=== PATIENT | male | born 1950 | race Caucasian/White ===

== ENCOUNTER 2020-06-21 22:13 | Inpatient (IN) ==
[2020-06-21] MEDS ORDERED: Ondansetron 4 MG/2 ML VIAL IVP ONE (22:21)
[2020-06-21] MEDS ORDERED: *HR* FentaNYL (PF) 100 MCG/2 ML VIAL IVP ONE (22:21)
[2020-06-21 22:41] LABS: Basophils # 0.1 K/mcL (0.0-0.2); Basophils % 0.6 %; Eosinophils # 0.3 K/mcL (0.0-0.6); Eosinophils % 2.2 %; Hematocrit 44.2 % (37.5-50.1); Hemoglobin 14.4 g/dL (12.9-16.9); Immature Granulocytes % 0.5 % (0-4); Lymphocytes # 2.8 K/mcL (0.6-4.6); Lymphocytes % 21.9 %; Mean Corpuscular HGB Conc 32.6 g/dL (31.6-35.5); Mean Corpuscular Hemoglobin 30.1 pg (28.0-33.3); Mean Corpuscular Volume 92.3 fL (83.0-100.0); Mean Platelet Volume 10.2 fL (9.4-12.4); Monocytes # 0.8 K/mcL (0.0-1.3); Monocytes % 6.2 %; Neutrophils # 8.7 K/mcL (1.6-8.9); Platelet Count 314 K/mcL (140-400); Red Blood Count 4.79 M/mcL (4.19-5.50); Red Cell Distribution Width 15.4 % (11.5-14.5); Segmented Neutrophils % 68.6 %; White Blood Count 12.7 K/mcL (4.3-11.1)
[2020-06-21 23:08] LABS: Alanine Aminotransferase 22 Units/L (7-52); Albumin 3.7 g/dL (3.5-5.7); Albumin/Globulin Ratio 1.2 (1.1-2.2); Alkaline Phosphatase 138 Units/L (34-104); Aspartate Amino Transferase 22 Units/L (13-39); BUN/Creatinine Ratio 11 (6-26); Bilirubin,Direct 0.2 mg/dL (0.0-0.2); Bilirubin,Indirect 0.7 mg/dL (0.0-1.0); Bilirubin,Total 0.9 mg/dL (0.3-1.0); Blood Urea Nitrogen 11 mg/dL (8-23); Calcium 9.4 mg/dL (8.6-10.3); Carbon Dioxide 24 mEq/L (23-29); Chloride 99 mEq/L (98-107); Globulin 3.2 g/dL (2.4-3.5); Glucose 105 mg/dL (70-105); Osmolality,Calculated 280 (280-300); Potassium 3.9 mEq/L (3.5-5.1); Sodium 135 mEq/L (136-145); Total Protein 6.9 g/dL (6.4-8.9); Troponin I < 0.03 ng/mL (< 0.04); eGFR For African Americans > 60 (> 60); eGFR For Non-African Americans > 60 (> 60)
[2020-06-21] MEDS ORDERED: Morphine Sulfate 2 MG/ML SYRINGE IVP ONE (23:45)
[2020-06-22] MEDS: 0.9 % Sodium Chloride 1,000 ML IVC SCH ×3 (01:16→21:54)
[2020-06-22] MEDS: cefOXitin 2,000 MG in 0.9 % Sodium Chloride Mini Bag 100 ML IVPB SCH ×4 (01:17→23:19)
[2020-06-22] MEDS: *HR* OxyCODONE/APAP 10/325 TABLET PO PRN ×3 (01:38→11:38)
[2020-06-22 02:01] LABS: Lipase 13 Units/L (11-82)
[2020-06-22 04:45] LABS: Basophils # 0.1 K/mcL (0.0-0.2); Basophils % 0.6 %; Eosinophils # 0.2 K/mcL (0.0-0.6); Hematocrit 42.6 % (37.5-50.1); Immature Granulocytes % 0.5 % (0-4); Lymphocytes # 2.3 K/mcL (0.6-4.6); Lymphocytes % 23.6 %; Mean Corpuscular HGB Conc 32.9 g/dL (31.6-35.5); Mean Corpuscular Hemoglobin 30.8 pg (28.0-33.3); Mean Corpuscular Volume 93.6 fL (83.0-100.0); Mean Platelet Volume 10.3 fL (9.4-12.4); Monocytes # 0.7 K/mcL (0.0-1.3); Monocytes % 7.3 %; Neutrophils # 6.3 K/mcL (1.6-8.9); Platelet Count 265 K/mcL (140-400); Red Blood Count 4.55 M/mcL (4.19-5.50); Red Cell Distribution Width 15.4 % (11.5-14.5); White Blood Count 9.6 K/mcL (4.3-11.1)
[2020-06-22 05:06] LABS: Alanine Aminotransferase 19 Units/L (7-52); Albumin 3.4 g/dL (3.5-5.7); Albumin/Globulin Ratio 1.2 (1.1-2.2); Alkaline Phosphatase 126 Units/L (34-104); Aspartate Amino Transferase 19 Units/L (13-39); BUN/Creatinine Ratio 11 (6-26); Bilirubin,Direct 0.2 mg/dL (0.0-0.2); Bilirubin,Indirect 0.5 mg/dL (0.0-1.0); Bilirubin,Total 0.7 mg/dL (0.3-1.0); Blood Urea Nitrogen 11 mg/dL (8-23); Calcium 9.3 mg/dL (8.6-10.3); Carbon Dioxide 27 mEq/L (23-29); Chloride 100 mEq/L (98-107); Globulin 2.9 g/dL (2.4-3.5); Glucose 111 mg/dL (70-105); Osmolality,Calculated 280 (280-300); Potassium 4.6 mEq/L (3.5-5.1); Sodium 135 mEq/L (136-145); Total Protein 6.3 g/dL (6.4-8.9); eGFR For African Americans > 60 (> 60); eGFR For Non-African Americans > 60 (> 60)
[2020-06-22] MEDS: Ondansetron 4 MG/2 ML VIAL IVP PRN ×3 (08:38→21:51)
[2020-06-22] MEDS ORDERED: *HR* Heparin 5,000 UNIT/ML VIAL IVP PRN ×2 (09:45)
[2020-06-22] MEDS ORDERED: *HR* Heparin 5,000 UNIT/ML VIAL IVP ONE (09:45)
[2020-06-22] MEDS ORDERED: Perflutren Lipid Microsphere 1.3 ML in 0.9 % Sodium Chloride 8.7 ML IVP PRN (09:46)
[2020-06-22] MEDS ORDERED: Pantoprazole 40 MG VIAL IVP SCH (10:30)
[2020-06-22] MEDS ORDERED: Ipratropium/Albuterol Neb 3 ML IH PRN (10:31)
[2020-06-22 10:39] LABS: Hematocrit 42.9 % (37.5-50.1); Hemoglobin 13.8 g/dL (12.9-16.9); Mean Corpuscular HGB Conc 32.2 g/dL (31.6-35.5); Mean Corpuscular Hemoglobin 29.7 pg (28.0-33.3); Mean Corpuscular Volume 92.3 fL (83.0-100.0); Mean Platelet Volume 10.5 fL (9.4-12.4); Platelet Count 281 K/mcL (140-400); Red Blood Count 4.65 M/mcL (4.19-5.50); Red Cell Distribution Width 15.6 % (11.5-14.5); White Blood Count 10.4 K/mcL (4.3-11.1)
[2020-06-22 10:43] LABS: Heparin anti-factor XA UFH 0.19 IU/mL (0.30-0.70)
[2020-06-22 10:44] LABS: INR 1.2; Prothrombin Time 13.9 Seconds (9.4-12.1)
[2020-06-22] MEDS: Heparin 25,000 UNIT/250 ML D5W 25,000 UNIT/250 ML IV.SOLN IVC SCH (11:29)
[2020-06-23] MEDS ORDERED: Ondansetron 4 MG/2 ML VIAL IVP ONE (00:30)
[2020-06-23 01:56] LABS: Basophils # 0.1 K/mcL (0.0-0.2); Basophils % 0.6 %; Eosinophils # 0.1 K/mcL (0.0-0.6); Eosinophils % 0.9 %; Hematocrit 40.3 % (37.5-50.1); Immature Granulocytes % 0.4 % (0-4); Lymphocytes # 1.6 K/mcL (0.6-4.6); Lymphocytes % 13.5 %; Mean Corpuscular HGB Conc 32.3 g/dL (31.6-35.5); Mean Corpuscular Hemoglobin 30.1 pg (28.0-33.3); Mean Corpuscular Volume 93.3 fL (83.0-100.0); Mean Platelet Volume 10.4 fL (9.4-12.4); Monocytes # 0.8 K/mcL (0.0-1.3); Monocytes % 6.7 %; Neutrophils # 9.2 K/mcL (1.6-8.9); Platelet Count 275 K/mcL (140-400); Red Blood Count 4.32 M/mcL (4.19-5.50); Red Cell Distribution Width 15.4 % (11.5-14.5); Segmented Neutrophils % 77.9 %; White Blood Count 11.9 K/mcL (4.3-11.1)
[2020-06-23 02:16] LABS: BUN/Creatinine Ratio 11 (6-26); Blood Urea Nitrogen 11 mg/dL (8-23); Carbon Dioxide 24 mEq/L (23-29); Chloride 104 mEq/L (98-107); Glucose 111 mg/dL (70-105); Osmolality,Calculated 282 (280-300); Potassium 4.1 mEq/L (3.5-5.1); Sodium 136 mEq/L (136-145); eGFR For African Americans > 60 (> 60); eGFR For Non-African Americans > 60 (> 60)
[2020-06-23] MEDS: Heparin 25,000 UNIT/250 ML D5W 25,000 UNIT/250 ML IV.SOLN IVC SCH (02:50)
[2020-06-23] MEDS: Ondansetron 4 MG/2 ML VIAL IVP PRN ×2 (04:28→22:48)
[2020-06-23] MEDS ORDERED: Metoclopramide 10 MG/2 ML VIAL IVP ONE (05:04)
[2020-06-23] MEDS: cefOXitin 2,000 MG in 0.9 % Sodium Chloride Mini Bag 100 ML IVPB SCH (07:04)
[2020-06-23] MEDS ORDERED: Furosemide 20 MG TABLET PO PRN (07:35)
[2020-06-23] MEDS: *HR* OxyCODONE/APAP 10/325 TABLET PO PRN (08:23)
[2020-06-23] MEDS ORDERED: Acetaminophen IV 1,000 MG/100 ML BAG IVPB ONE (09:09)
[2020-06-23] MEDS ORDERED: *HR* FentaNYL (PF) 100 MCG/2 ML VIAL IVP ONE (09:09)
[2020-06-23] MEDS: Gabapentin 400 MG CAPSULE PO SCH ×3 (09:53→21:13)
[2020-06-23] MEDS: Cholecalciferol (D-3) 1,000 UNIT (25MCG) TABLET PO SCH (09:53)
[2020-06-23] MEDS ORDERED: Ampicillin/Sulbactam 1,500 MG in 0.9 % Sodium Chloride Mini Bag 100 ML IVPB SCH (12:00)
[2020-06-23] MEDS: 0.9 % Sodium Chloride 1,000 ML IVC SCH (12:01)
[2020-06-23] MEDS: traZODone 50 MG TABLET PO SCH (12:11)
[2020-06-23] MEDS ORDERED: Scopolamine Patch 1.5 MG PATCH.TD72 TD ONE (14:21)
[2020-06-23] MEDS ORDERED: *HR* FentaNYL (PF) 100 MCG/2 ML VIAL IVP PRN (17:17)
[2020-06-23] MEDS: Piperacillin/Tazobactam 3.375 GM in 0.9 % Sodium Chloride Mini Bag 100 ML IVPB SCH (17:19)
[2020-06-23] MEDS: Acetaminophen IV 1,000 MG/100 ML BAG IVPB SCH (17:19)
[2020-06-24] MEDS: Acetaminophen IV 1,000 MG/100 ML BAG IVPB SCH ×4 (00:14→19:39)
[2020-06-24] MEDS: Piperacillin/Tazobactam 3.375 GM in 0.9 % Sodium Chloride Mini Bag 100 ML IVPB SCH ×3 (02:29→17:06)
[2020-06-24] MEDS: Heparin 25,000 UNIT/250 ML D5W 25,000 UNIT/250 ML IV.SOLN IVC SCH (05:13)
[2020-06-24] MEDS: 0.9 % Sodium Chloride 1,000 ML IVC SCH ×2 (05:54→19:30)
[2020-06-24 07:47] LABS: Basophils # 0.1 K/mcL (0.0-0.2); Eosinophils # 0.4 K/mcL (0.0-0.6); Eosinophils % 5.2 %; Hematocrit 38.4 % (37.5-50.1); Hemoglobin 12.2 g/dL (12.9-16.9); Immature Granulocytes % 0.4 % (0-4); Lymphocytes # 1.4 K/mcL (0.6-4.6); Lymphocytes % 20.6 %; Mean Corpuscular HGB Conc 31.8 g/dL (31.6-35.5); Mean Corpuscular Hemoglobin 29.7 pg (28.0-33.3); Mean Corpuscular Volume 93.4 fL (83.0-100.0); Mean Platelet Volume 10.5 fL (9.4-12.4); Monocytes # 0.6 K/mcL (0.0-1.3); Monocytes % 8.2 %; Neutrophils # 4.4 K/mcL (1.6-8.9); Platelet Count 263 K/mcL (140-400); Red Blood Count 4.11 M/mcL (4.19-5.50); Red Cell Distribution Width 15.9 % (11.5-14.5); Segmented Neutrophils % 64.6 %; White Blood Count 6.7 K/mcL (4.3-11.1)
[2020-06-24 08:07] LABS: BUN/Creatinine Ratio 8 (6-26); Blood Urea Nitrogen 8 mg/dL (8-23); Calcium 8.3 mg/dL (8.6-10.3); Carbon Dioxide 26 mEq/L (23-29); Chloride 104 mEq/L (98-107); Glucose 80 mg/dL (70-105); Osmolality,Calculated 279 (280-300); Potassium 3.9 mEq/L (3.5-5.1); Sodium 136 mEq/L (136-145); eGFR For African Americans > 60 (> 60); eGFR For Non-African Americans > 60 (> 60)
[2020-06-24 08:08] LABS: Albumin 3.1 g/dL (3.5-5.7); Albumin/Globulin Ratio 1.2 (1.1-2.2); Bilirubin,Direct 0.2 mg/dL (0.0-0.2); Bilirubin,Indirect 0.5 mg/dL (0.0-1.0); Bilirubin,Total 0.7 mg/dL (0.3-1.0); Globulin 2.5 g/dL (2.4-3.5); Total Protein 5.6 g/dL (6.4-8.9)
[2020-06-24 08:32] LABS: Hepatitis B Surface Antigen Nonreactive (Nonreactive)
[2020-06-24 09:01] LABS: Hepatitis C Virus Antibody Nonreactive (Nonreactive)
[2020-06-24 09:02] LABS: Hepatitis B Core IgM Nonreactive (Nonreactive)
[2020-06-24 09:03] LABS: Hepatitis A Antibody IgM Nonreactive (Nonreactive)
[2020-06-24] MEDS: Cholecalciferol (D-3) 1,000 UNIT (25MCG) TABLET PO SCH (10:04)
[2020-06-24] MEDS: Nystatin POWDER 30 GM BOTTLE TP SCH ×2 (10:04→22:42)
[2020-06-24] MEDS: Gabapentin 400 MG CAPSULE PO SCH ×3 (10:04→22:37)
[2020-06-24] MEDS: traZODone 50 MG TABLET PO SCH (12:05)
[2020-06-24] MEDS: Ondansetron 4 MG/2 ML VIAL IVP PRN (12:14)
[2020-06-24 12:26] LABS: Magnesium 1.8 mg/dL (1.6-2.6); Phosphorous 3.1 mg/dL (2.7-4.5)
[2020-06-25] MEDS: Acetaminophen IV 1,000 MG/100 ML BAG IVPB SCH ×4 (00:22→18:59)
[2020-06-25] MEDS: Heparin 25,000 UNIT/250 ML D5W 25,000 UNIT/250 ML IV.SOLN IVC SCH (01:11)
[2020-06-25 01:16] LABS: Estimated Average Glucose 123 mg/dl; Hemoglobin A1C 5.9 %
[2020-06-25 01:17] LABS: Basophils # 0.1 K/mcL (0.0-0.2); Eosinophils # 0.6 K/mcL (0.0-0.6); Eosinophils % 6.7 %; Hematocrit 36.8 % (37.5-50.1); Hemoglobin 11.6 g/dL (12.9-16.9); Immature Granulocytes % 0.3 % (0-4); Lymphocytes % 20.8 %; Mean Corpuscular HGB Conc 31.5 g/dL (31.6-35.5); Mean Corpuscular Hemoglobin 29.3 pg (28.0-33.3); Mean Corpuscular Volume 92.9 fL (83.0-100.0); Mean Platelet Volume 10.2 fL (9.4-12.4); Monocytes % 10.1 %; Neutrophils # 5.8 K/mcL (1.6-8.9); Platelet Count 246 K/mcL (140-400); Red Blood Count 3.96 M/mcL (4.19-5.50); Red Cell Distribution Width 15.8 % (11.5-14.5); Segmented Neutrophils % 61.1 %; White Blood Count 9.4 K/mcL (4.3-11.1)
[2020-06-25 01:35] LABS: BUN/Creatinine Ratio 8 (6-26); Blood Urea Nitrogen 8 mg/dL (8-23); Calcium 8.4 mg/dL (8.6-10.3); Carbon Dioxide 22 mEq/L (23-29); Chloride 105 mEq/L (98-107); Glucose 84 mg/dL (70-105); Osmolality,Calculated 276 (280-300); Potassium 3.6 mEq/L (3.5-5.1); Sodium 134 mEq/L (136-145); eGFR For African Americans > 60 (> 60); eGFR For Non-African Americans > 60 (> 60)
[2020-06-25] MEDS: Piperacillin/Tazobactam 3.375 GM in 0.9 % Sodium Chloride Mini Bag 100 ML IVPB SCH ×2 (01:54→18:59)
[2020-06-25] MEDS ORDERED: Naloxone 0.4 MG/ML INJ IVP PRN ×2 (07:23→14:00)
[2020-06-25] MEDS ORDERED: Acetaminophen IV 1,000 MG/100 ML BAG IVPB ONE (07:23)
[2020-06-25] MEDS ORDERED: Ondansetron 4 MG/2 ML VIAL IVP ONE (07:23)
[2020-06-25] MEDS ORDERED: Dexamethasone 4 MG/ML VIAL IVP ONE (07:23)
[2020-06-25] MEDS ORDERED: *HR* FentaNYL (PF) 100 MCG/2 ML VIAL IVP PRN (07:23)
[2020-06-25] MEDS ORDERED: *HR* Propofol 200 MG/20 ML VIAL IVP ONE (07:39)
[2020-06-25] MEDS ORDERED: *HR* FentaNYL (PF) 100 MCG/2 ML VIAL ONE (07:39)
[2020-06-25] MEDS: Ringers Solution, Lactated 1,000 ML IVC SCH ×2 (07:40→09:40)
[2020-06-25] MEDS ORDERED: Ondansetron 4 MG/2 ML VIAL ONE (07:43)
[2020-06-25] MEDS ORDERED: Lidocaine HCL 4 ML Topical Solution (Laryng-O-Jet Kit Sterile Pak) TP ONE (07:43)
[2020-06-25] MEDS ORDERED: *HR* Rocuronium Bromide 50 MG/5 ML VIAL ONE ×2 (07:43→09:16)
[2020-06-25] MEDS ORDERED: Lidocaine -MPF 2% 2 ML VIAL ONE (07:43)
[2020-06-25] MEDS ORDERED: *HR* Succinylcholine 200 MG/10 ML VIAL IVP ONE (07:43)
[2020-06-25] MEDS ORDERED: Dexamethasone 4 MG/ML VIAL ONE ×2 (07:43→09:01)
[2020-06-25] MEDS ORDERED: Acetaminophen IV 1,000 MG/100 ML BAG ONE (08:03)
[2020-06-25] MEDS ORDERED: *HR* HYDROMORPHONE 2 MG/ML VIAL ONE (08:42)
[2020-06-25] MEDS ORDERED: *HR* Magnesium Sulfate 1 GM/2 ML VIAL ONE (08:45)
[2020-06-25] MEDS ORDERED: Albumin Human 5% 25.0 GM/500 ML IV.SOLN ONE (10:58)
[2020-06-25] MEDS ORDERED: Albumin Human 5% 12.5 GM/250 ML IV.SOLN IVPB ONE (11:26)
[2020-06-25] MEDS: *HR* HYDROmorphone PF 0.5 MG/0.5 ML SYRINGE IVP PRN ×2 (12:41→12:46)
[2020-06-25] MEDS ORDERED: 0.9 % Sodium Chloride 1,000 ML IVC SCH (14:00)
[2020-06-25] MEDS: Gabapentin 400 MG CAPSULE PO SCH ×2 (14:11→20:49)
[2020-06-25] MEDS: Ipratropium/Albuterol Neb 3 ML IH SCH ×3 (15:28→21:48)
[2020-06-25] MEDS: Nystatin POWDER 30 GM BOTTLE TP SCH (20:49)
[2020-06-26] MEDS: Acetaminophen IV 1,000 MG/100 ML BAG IVPB SCH ×3 (00:25→12:34)
[2020-06-26] MEDS: Piperacillin/Tazobactam 3.375 GM in 0.9 % Sodium Chloride Mini Bag 100 ML IVPB SCH ×4 (02:36→18:02)
[2020-06-26] MEDS: Ipratropium/Albuterol Neb 3 ML IH SCH ×4 (03:27→21:46)
[2020-06-26 03:51] LABS: Alanine Aminotransferase 40 Units/L (7-52); Albumin 2.9 g/dL (3.5-5.7); Albumin/Globulin Ratio 1.4 (1.1-2.2); Alkaline Phosphatase 78 Units/L (34-104); Aspartate Amino Transferase 43 Units/L (13-39); BUN/Creatinine Ratio 8 (6-26); Bilirubin,Direct 0.2 mg/dL (0.0-0.2); Bilirubin,Indirect 0.3 mg/dL (0.0-1.0); Bilirubin,Total 0.5 mg/dL (0.3-1.0); Blood Urea Nitrogen 8 mg/dL (8-23); Calcium 8.1 mg/dL (8.6-10.3); Carbon Dioxide 23 mEq/L (23-29); Chloride 104 mEq/L (98-107); Globulin 2.1 g/dL (2.4-3.5); Glucose 156 mg/dL (70-105); Osmolality,Calculated 280 (280-300); Phosphorous 2.4 mg/dL (2.7-4.5); Potassium 4.1 mEq/L (3.5-5.1); Sodium 134 mEq/L (136-145); eGFR For African Americans > 60 (> 60); eGFR For Non-African Americans > 60 (> 60)
[2020-06-26 04:12] LABS: Basophils % 0.1 %; Hematocrit 32.7 % (37.5-50.1); Hemoglobin 10.5 g/dL (12.9-16.9); Immature Granulocytes % 0.5 % (0-4); Lymphocytes # 0.9 K/mcL (0.6-4.6); Lymphocytes % 4.8 %; Mean Corpuscular HGB Conc 32.1 g/dL (31.6-35.5); Mean Corpuscular Hemoglobin 30.6 pg (28.0-33.3); Mean Corpuscular Volume 95.3 fL (83.0-100.0); Mean Platelet Volume 10.7 fL (9.4-12.4); Platelet Count 258 K/mcL (140-400); Red Blood Count 3.43 M/mcL (4.19-5.50); Red Cell Distribution Width 16.1 % (11.5-14.5); Segmented Neutrophils % 89.6 %
[2020-06-26] MEDS: 0.9 % Sodium Chloride 1,000 ML IVC SCH (07:31)
[2020-06-26] MEDS: Gabapentin 400 MG CAPSULE PO SCH ×4 (07:32→21:15)
[2020-06-26] MEDS: traZODone 50 MG TABLET PO SCH ×2 (07:32→12:34)
[2020-06-26] MEDS: Cholecalciferol (D-3) 1,000 UNIT (25MCG) TABLET PO SCH ×2 (07:32→08:28)
[2020-06-26] MEDS: Nystatin POWDER 30 GM BOTTLE TP SCH ×3 (07:32→21:20)
[2020-06-26] MEDS ORDERED: Acetaminophen 325 MG TABLET PO PRN (13:39)
[2020-06-26] MEDS: Furosemide 20 MG TABLET PO PRN (21:29)
[2020-06-27] MEDS: Piperacillin/Tazobactam 3.375 GM in 0.9 % Sodium Chloride Mini Bag 100 ML IVPB SCH ×3 (01:48→17:42)
[2020-06-27] MEDS: Ipratropium/Albuterol Neb 3 ML IH SCH ×4 (03:37→21:35)
[2020-06-27] MEDS: Ondansetron 4 MG/2 ML VIAL IVP PRN ×3 (03:39→18:56)
[2020-06-27 04:51] LABS: Basophils # 0.1 K/mcL (0.0-0.2); Basophils % 0.3 %; Eosinophils # 0.1 K/mcL (0.0-0.6); Eosinophils % 0.3 %; Hematocrit 32.6 % (37.5-50.1); Hemoglobin 10.6 g/dL (12.9-16.9); Immature Granulocytes % 0.4 % (0-4); Lymphocytes # 2.1 K/mcL (0.6-4.6); Lymphocytes % 13.2 %; Mean Corpuscular HGB Conc 32.5 g/dL (31.6-35.5); Mean Corpuscular Hemoglobin 30.4 pg (28.0-33.3); Mean Corpuscular Volume 93.4 fL (83.0-100.0); Mean Platelet Volume 10.7 fL (9.4-12.4); Monocytes # 1.2 K/mcL (0.0-1.3); Monocytes % 7.5 %; Neutrophils # 12.4 K/mcL (1.6-8.9); Platelet Count 235 K/mcL (140-400); Red Blood Count 3.49 M/mcL (4.19-5.50); Red Cell Distribution Width 16.7 % (11.5-14.5); Segmented Neutrophils % 78.3 %; White Blood Count 15.8 K/mcL (4.3-11.1)
[2020-06-27 05:05] LABS: BUN/Creatinine Ratio 9 (6-26); Blood Urea Nitrogen 9 mg/dL (8-23); Calcium 8.1 mg/dL (8.6-10.3); Carbon Dioxide 24 mEq/L (23-29); Chloride 104 mEq/L (98-107); Glucose 141 mg/dL (70-105); Osmolality,Calculated 281 (280-300); Potassium 3.2 mEq/L (3.5-5.1); Sodium 135 mEq/L (136-145); eGFR For African Americans > 60 (> 60); eGFR For Non-African Americans > 60 (> 60)
[2020-06-27] MEDS ORDERED: Furosemide 40 MG/4 ML VIAL IVP ONE (06:54)
[2020-06-27] MEDS: Cholecalciferol (D-3) 1,000 UNIT (25MCG) TABLET PO SCH (07:50)
[2020-06-27] MEDS: Gabapentin 400 MG CAPSULE PO SCH ×4 (07:51→21:41)
[2020-06-27] MEDS: Nystatin POWDER 30 GM BOTTLE TP SCH ×2 (07:52→20:26)
[2020-06-27] MEDS ORDERED: Heparin 25,000 UNIT/250 ML D5W 25,000 UNIT/250 ML IV.SOLN IVC SCH (11:15)
[2020-06-27] MEDS: traZODone 50 MG TABLET PO SCH (11:59)
[2020-06-27 12:03] LABS: Hematocrit 36.3 % (37.5-50.1); Hemoglobin 11.3 g/dL (12.9-16.9); Mean Corpuscular HGB Conc 31.1 g/dL (31.6-35.5); Mean Corpuscular Hemoglobin 29.5 pg (28.0-33.3); Mean Corpuscular Volume 94.8 fL (83.0-100.0); Mean Platelet Volume 10.8 fL (9.4-12.4); Platelet Count 251 K/mcL (140-400); Red Blood Count 3.83 M/mcL (4.19-5.50); Red Cell Distribution Width 16.6 % (11.5-14.5); White Blood Count 16.7 K/mcL (4.3-11.1)
[2020-06-27 12:05] LABS: Heparin anti-factor XA UFH 0.05 IU/mL (0.30-0.70); INR 1.3; Prothrombin Time 14.8 Seconds (9.4-12.1)
[2020-06-27] MEDS ORDERED: *HR* HYDROcodone/Acet 5/325 mg TABLET PO PRN (15:33)
[2020-06-27] MEDS ORDERED: Metoclopramide 10 MG/2 ML VIAL IVP ONE (19:36)
[2020-06-27] MEDS ORDERED: Scopolamine Patch 1.5 MG PATCH.TD72 TD ONE (21:53)
[2020-06-27 22:37] LABS: Hematocrit 33.3 % (37.5-50.1); Mean Corpuscular Volume 93.8 fL (83.0-100.0); Mean Platelet Volume 10.5 fL (9.4-12.4); Platelet Count 220 K/mcL (140-400); Red Blood Count 3.55 M/mcL (4.19-5.50); Red Cell Distribution Width 16.5 % (11.5-14.5); White Blood Count 15.9 K/mcL (4.3-11.1)
[2020-06-27 22:42] LABS: BUN/Creatinine Ratio 7 (6-26); Blood Urea Nitrogen 6 mg/dL (8-23); Calcium 8.4 mg/dL (8.6-10.3); Carbon Dioxide 24 mEq/L (23-29); Chloride 103 mEq/L (98-107); Glucose 121 mg/dL (70-105); Osmolality,Calculated 279 (280-300); Potassium 3.5 mEq/L (3.5-5.1); Sodium 135 mEq/L (136-145); eGFR For African Americans > 60 (> 60); eGFR For Non-African Americans > 60 (> 60)
[2020-06-28] MEDS ORDERED: Isovue-370 500 ML BOTTLE IVP ONE (02:00)
[2020-06-28] MEDS: Levalbuterol Neb 1.25 MG/3 ML IH SCH ×7 (02:05→23:21)
[2020-06-28] MEDS ORDERED: Metoclopramide 10 MG/2 ML VIAL IVP ONE (02:48)
[2020-06-28] MEDS ORDERED: Ondansetron 4 MG/2 ML VIAL ONE (02:49)
[2020-06-28 03:48] LABS: Troponin I < 0.03 ng/mL (< 0.04)
[2020-06-28] MEDS: Azithromycin 500 MG in 0.9 % Sodium Chloride 250 ML IVPB SCH (03:48)
[2020-06-28] MEDS: Piperacillin/Tazobactam 3.375 GM in 0.9 % Sodium Chloride Mini Bag 100 ML IVPB SCH ×3 (06:09→16:49)
[2020-06-28 08:30] LABS: Basophils # 0.1 K/mcL (0.0-0.2); Basophils % 0.3 %; Eosinophils # 0.2 K/mcL (0.0-0.6); Eosinophils % 1.4 %; Hematocrit 37.1 % (37.5-50.1); Hemoglobin 11.8 g/dL (12.9-16.9); Immature Granulocytes % 0.4 % (0-4); Lymphocytes # 0.9 K/mcL (0.6-4.6); Lymphocytes % 5.6 %; Mean Corpuscular HGB Conc 31.8 g/dL (31.6-35.5); Mean Corpuscular Hemoglobin 29.8 pg (28.0-33.3); Mean Corpuscular Volume 93.7 fL (83.0-100.0); Mean Platelet Volume 11.1 fL (9.4-12.4); Monocytes % 6.1 %; Neutrophils # 14.4 K/mcL (1.6-8.9); Platelet Count 259 K/mcL (140-400); Red Blood Count 3.96 M/mcL (4.19-5.50); Red Cell Distribution Width 16.8 % (11.5-14.5); Segmented Neutrophils % 86.2 %; White Blood Count 16.7 K/mcL (4.3-11.1)
[2020-06-28] MEDS: Gabapentin 400 MG CAPSULE PO SCH ×4 (08:37→21:22)
[2020-06-28] MEDS: Cholecalciferol (D-3) 1,000 UNIT (25MCG) TABLET PO SCH ×2 (08:38→09:24)
[2020-06-28 08:39] LABS: BUN/Creatinine Ratio 7 (6-26); Blood Urea Nitrogen 6 mg/dL (8-23); Calcium 8.5 mg/dL (8.6-10.3); Carbon Dioxide 23 mEq/L (23-29); Chloride 102 mEq/L (98-107); Glucose 114 mg/dL (70-105); Osmolality,Calculated 282 (280-300); Potassium 3.6 mEq/L (3.5-5.1); Sodium 137 mEq/L (136-145); eGFR For African Americans > 60 (> 60); eGFR For Non-African Americans > 60 (> 60)
[2020-06-28] MEDS ORDERED: Lidocaine Jelly 11 ml Syringe MM ONE (09:01)
[2020-06-28] MEDS: Nystatin POWDER 30 GM BOTTLE TP SCH ×2 (09:05→21:27)
[2020-06-28] MEDS ORDERED: *HR* Metoprolol 5 MG/5 ML VIAL IVP PRN (09:13)
[2020-06-28] MEDS: Metoclopramide 20 MG in 0.9 % Sodium Chloride 50 ML IVPB SCH ×2 (09:27→16:49)
[2020-06-28] MEDS: Pantoprazole 40 MG VIAL IVP SCH (10:02)
[2020-06-28] MEDS: D5% in 0.45% NACL 1,000 ML IVC SCH (10:02)
[2020-06-28] MEDS ORDERED: *HR* Metoprolol 5 MG/5 ML VIAL IVP SCH (12:00)
[2020-06-28] MEDS: traZODone 50 MG TABLET PO SCH (14:11)
[2020-06-28] MEDS: Acetaminophen IV 1,000 MG/100 ML BAG IVPB SCH ×2 (14:29→19:26)
[2020-06-28 15:34] LABS: Hematocrit 33.3 % (37.5-50.1); Hemoglobin 10.7 g/dL (12.9-16.9); Mean Corpuscular HGB Conc 32.1 g/dL (31.6-35.5); Mean Corpuscular Hemoglobin 29.8 pg (28.0-33.3); Mean Corpuscular Volume 92.8 fL (83.0-100.0); Mean Platelet Volume 10.6 fL (9.4-12.4); Platelet Count 234 K/mcL (140-400); Red Blood Count 3.59 M/mcL (4.19-5.50); Red Cell Distribution Width 16.5 % (11.5-14.5); White Blood Count 15.6 K/mcL (4.3-11.1)
[2020-06-28 15:47] LABS: Heparin anti-factor XA UFH < 0.04 IU/mL (0.30-0.70)
[2020-06-28 15:48] LABS: INR 1.3; Prothrombin Time 14.3 Seconds (9.4-12.1)
[2020-06-28] MEDS: Heparin 25,000 UNIT/250 ML D5W 25,000 UNIT/250 ML IV.SOLN IVC SCH (16:50)
[2020-06-29] MEDS: Piperacillin/Tazobactam 3.375 GM in 0.9 % Sodium Chloride Mini Bag 100 ML IVPB SCH ×3 (00:47→16:25)
[2020-06-29] MEDS: Acetaminophen IV 1,000 MG/100 ML BAG IVPB SCH ×4 (00:48→17:37)
[2020-06-29] MEDS: Metoclopramide 20 MG in 0.9 % Sodium Chloride 50 ML IVPB SCH ×3 (01:12→16:26)
[2020-06-29] MEDS: Azithromycin 500 MG in 0.9 % Sodium Chloride 250 ML IVPB SCH (01:48)
[2020-06-29] MEDS: Levalbuterol Neb 1.25 MG/3 ML IH SCH ×6 (03:24→23:08)
[2020-06-29] MEDS: Furosemide 20 MG TABLET PO PRN (06:00)
[2020-06-29 06:15] LABS: Basophils # 0.1 K/mcL (0.0-0.2); Basophils % 0.3 %; Eosinophils # 0.8 K/mcL (0.0-0.6); Eosinophils % 5.5 %; Hemoglobin 10.2 g/dL (12.9-16.9); Immature Granulocytes % 0.5 % (0-4); Lymphocytes # 1.2 K/mcL (0.6-4.6); Mean Corpuscular HGB Conc 31.9 g/dL (31.6-35.5); Mean Corpuscular Volume 94.1 fL (83.0-100.0); Mean Platelet Volume 10.6 fL (9.4-12.4); Monocytes # 0.8 K/mcL (0.0-1.3); Monocytes % 5.5 %; Neutrophils # 11.7 K/mcL (1.6-8.9); Platelet Count 253 K/mcL (140-400); Red Cell Distribution Width 16.5 % (11.5-14.5); Segmented Neutrophils % 80.2 %; White Blood Count 14.5 K/mcL (4.3-11.1)
[2020-06-29] MEDS: D5% in 0.45% NACL 1,000 ML IVC SCH (06:16)
[2020-06-29] MEDS: Heparin 25,000 UNIT/250 ML D5W 25,000 UNIT/250 ML IV.SOLN IVC SCH ×2 (06:16→20:56)
[2020-06-29 06:35] LABS: BUN/Creatinine Ratio 8 (6-26); Blood Urea Nitrogen 7 mg/dL (8-23); Calcium 7.9 mg/dL (8.6-10.3); Carbon Dioxide 25 mEq/L (23-29); Chloride 104 mEq/L (98-107); Glucose 108 mg/dL (70-105); Magnesium 1.8 mg/dL (1.6-2.6); Osmolality,Calculated 281 (280-300); Phosphorous 2.8 mg/dL (2.7-4.5); Potassium 3.5 mEq/L (3.5-5.1); Sodium 136 mEq/L (136-145); eGFR For African Americans > 60 (> 60); eGFR For Non-African Americans > 60 (> 60)
[2020-06-29] MEDS: Pantoprazole 40 MG VIAL IVP SCH (07:33)
[2020-06-29] MEDS: Nystatin POWDER 30 GM BOTTLE TP SCH (07:34)
[2020-06-29] MEDS: Gabapentin 400 MG CAPSULE PO SCH ×3 (07:34→21:08)
[2020-06-29] MEDS ORDERED: Lidocaine -MPF 1% 5 ML AMPUL INFILT ONE (08:12)
[2020-06-29 08:37] LABS: Triglycerides 51 mg/dL (< 150)
[2020-06-29] MEDS ORDERED: D10% in Water 500 ML IVC PRN (09:44)
[2020-06-29] MEDS: traZODone 50 MG TABLET PO SCH (11:20)
[2020-06-29] MEDS ORDERED: Chloraseptic Spray 177 ML BOTTLE MM PRN (12:07)
[2020-06-29] MEDS ORDERED: Saliva Stimulant 100ml BOTTLE PO PRN (12:07)
[2020-06-29] MEDS ORDERED: Furosemide 40 MG/4 ML VIAL IVP ONE (12:12)
[2020-06-29] MEDS ORDERED: Dextrose Gel 15 GM/37.5 ML TUBE PO PRN ×2 (14:19)
[2020-06-29] MEDS ORDERED: D5% in Water 1,000 ML IVC PRN (14:19)
[2020-06-29] MEDS ORDERED: *HR* Dextrose 50 % in Water (Vial) 50 ML VIAL IVP PRN (14:19)
[2020-06-29] MEDS ORDERED: Clinimix E 5%-15% SOLUTION 2,000 ML with MVI, adult with vitamin K 10 ML IVC SCH (17:00)
[2020-06-29] MEDS: Insulin LISPRO 300 UNITS/3 ML VIAL SQ SCH ×2 (17:23→21:09)
[2020-06-30] MEDS: Insulin LISPRO 300 UNITS/3 ML VIAL SQ SCH ×6 (00:42→20:57)
[2020-06-30] MEDS: Piperacillin/Tazobactam 3.375 GM in 0.9 % Sodium Chloride Mini Bag 100 ML IVPB SCH ×3 (00:42→16:25)
[2020-06-30] MEDS: Acetaminophen IV 1,000 MG/100 ML BAG IVPB SCH ×3 (00:43→11:50)
[2020-06-30] MEDS: Metoclopramide 20 MG in 0.9 % Sodium Chloride 50 ML IVPB SCH ×3 (00:43→16:33)
[2020-06-30] MEDS: Nystatin POWDER 30 GM BOTTLE TP SCH ×3 (01:53→21:58)
[2020-06-30] MEDS: D5% in 0.45% NACL 1,000 ML IVC SCH (03:38)
[2020-06-30] MEDS: Azithromycin 500 MG in 0.9 % Sodium Chloride 250 ML IVPB SCH (03:40)
[2020-06-30] MEDS: Levalbuterol Neb 1.25 MG/3 ML IH SCH ×5 (03:43→22:52)
[2020-06-30] MEDS ORDERED: Furosemide 40 MG/4 ML VIAL IVP ONE (07:38)
[2020-06-30] MEDS: Gabapentin 400 MG CAPSULE PO SCH ×3 (08:44→21:57)
[2020-06-30] MEDS: Pantoprazole 40 MG VIAL IVP SCH (08:44)
[2020-06-30 10:02] LABS: Magnesium 1.7 mg/dL (1.6-2.6); Phosphorous 5.9 mg/dL (2.7-4.5)
[2020-06-30] MEDS: Heparin 25,000 UNIT/250 ML D5W 25,000 UNIT/250 ML IV.SOLN IVC SCH (10:23)
[2020-06-30] MEDS: traZODone 50 MG TABLET PO SCH ×2 (11:49→21:57)
[2020-06-30 12:30] LABS: Basophils % 0.2 %; Eosinophils # 0.3 K/mcL (0.0-0.6); Eosinophils % 2.1 %; Hematocrit 30.4 % (37.5-50.1); Immature Granulocytes % 0.5 % (0-4); Lymphocytes # 1.4 K/mcL (0.6-4.6); Lymphocytes % 9.9 %; Mean Corpuscular HGB Conc 32.9 g/dL (31.6-35.5); Mean Corpuscular Hemoglobin 29.9 pg (28.0-33.3); Mean Platelet Volume 10.4 fL (9.4-12.4); Monocytes # 0.9 K/mcL (0.0-1.3); Monocytes % 6.4 %; Neutrophils # 11.6 K/mcL (1.6-8.9); Platelet Count 257 K/mcL (140-400); Red Blood Count 3.34 M/mcL (4.19-5.50); Segmented Neutrophils % 80.9 %; White Blood Count 14.3 K/mcL (4.3-11.1)
[2020-06-30 12:50] LABS: BUN/Creatinine Ratio 6 (6-26); Blood Urea Nitrogen 5 mg/dL (8-23); Calcium 7.9 mg/dL (8.6-10.3); Carbon Dioxide 29 mEq/L (23-29); Chloride 102 mEq/L (98-107); Glucose 125 mg/dL (70-105); Magnesium 1.6 mg/dL (1.6-2.6); Osmolality,Calculated 283 (280-300); Phosphorous 2.6 mg/dL (2.7-4.5); Potassium 2.7 mEq/L (3.5-5.1); Sodium 137 mEq/L (136-145); eGFR For African Americans > 60 (> 60); eGFR For Non-African Americans > 60 (> 60)
[2020-06-30] MEDS ORDERED: Potassium Chloride 40 MEQ, Lidocaine 1% 2 ML in D5% in Water 500 ML IVPB ONE (12:58)
[2020-06-30] MEDS ORDERED: Potassium Chloride 40 MEQ, Lidocaine 1% 2 ML in 0.9 % Sodium Chloride 500 ML IVPB SCH (14:00)
[2020-06-30] MEDS ORDERED: *HR* OxyCODONE Immed Rel 5 MG TABLET PO PRN (15:40)
[2020-06-30] MEDS ORDERED: Acetaminophen 325 MG TABLET PO PRN (16:42)
[2020-06-30] MEDS ORDERED: *HR* HYDROcodone/Acet 5/325 mg TABLET PO PRN (16:43)
[2020-06-30] MEDS ORDERED: Potassium Chloride Elixir 20 MEQ/15 ML UDC PO ONE ×2 (16:50→21:00)
[2020-06-30] MEDS ORDERED: Clinimix E 5%-15% SOLUTION 2,000 ML with MVI, adult with vitamin K 10 ML IVC SCH (17:00)
[2020-06-30] MEDS: Metoclopramide 10 MG/10 ML UD.LIQ PO SCH (17:46)
[2020-06-30] MEDS ORDERED: *HR* Rivaroxaban 10 MG TABLET PO SCH (18:00)
[2020-06-30] MEDS: Nystatin SUSP 5 ML UD.LIQ PO SCH (21:58)
[2020-06-30] MEDS: *HR* Rivaroxaban 10 MG TABLET PO SCH (22:02)
[2020-07-01] MEDS: Insulin LISPRO 300 UNITS/3 ML VIAL SQ SCH ×6 (00:54→20:39)
[2020-07-01] MEDS: Piperacillin/Tazobactam 3.375 GM in 0.9 % Sodium Chloride Mini Bag 100 ML IVPB SCH ×3 (01:02→17:25)
[2020-07-01] MEDS: Metoclopramide 10 MG/10 ML UD.LIQ PO SCH ×4 (01:02→17:25)
[2020-07-01] MEDS: Levalbuterol Neb 1.25 MG/3 ML IH SCH ×4 (03:29→22:29)
[2020-07-01] MEDS: Azithromycin 500 MG in 0.9 % Sodium Chloride 250 ML IVPB SCH (03:53)
[2020-07-01 04:36] LABS: Basophils % 0.3 %; Eosinophils # 0.4 K/mcL (0.0-0.6); Eosinophils % 3.4 %; Hematocrit 29.3 % (37.5-50.1); Hemoglobin 9.6 g/dL (12.9-16.9); Immature Granulocytes % 0.5 % (0-4); Lymphocytes # 1.7 K/mcL (0.6-4.6); Mean Corpuscular HGB Conc 32.8 g/dL (31.6-35.5); Mean Corpuscular Hemoglobin 30.2 pg (28.0-33.3); Mean Corpuscular Volume 92.1 fL (83.0-100.0); Mean Platelet Volume 10.6 fL (9.4-12.4); Monocytes % 8.3 %; Neutrophils # 8.8 K/mcL (1.6-8.9); Platelet Count 261 K/mcL (140-400); Red Blood Count 3.18 M/mcL (4.19-5.50); Segmented Neutrophils % 73.5 %; White Blood Count 11.9 K/mcL (4.3-11.1)
[2020-07-01 04:55] LABS: Magnesium 1.6 mg/dL (1.6-2.6); Phosphorous 3.4 mg/dL (2.7-4.5)
[2020-07-01 04:58] LABS: BUN/Creatinine Ratio 7 (6-26); Blood Urea Nitrogen 5 mg/dL (8-23); Calcium 7.9 mg/dL (8.6-10.3); Carbon Dioxide 28 mEq/L (23-29); Chloride 103 mEq/L (98-107); Glucose 116 mg/dL (70-105); Osmolality,Calculated 284 (280-300); Potassium 2.8 mEq/L (3.5-5.1); Sodium 138 mEq/L (136-145); eGFR For African Americans > 60 (> 60); eGFR For Non-African Americans > 60 (> 60)
[2020-07-01] MEDS: Nystatin SUSP 5 ML UD.LIQ PO SCH ×4 (09:28→22:10)
[2020-07-01] MEDS: *HR* Rivaroxaban 10 MG TABLET PO SCH (09:28)
[2020-07-01] MEDS: Gabapentin 400 MG CAPSULE PO SCH ×3 (09:28→22:09)
[2020-07-01] MEDS: Cholecalciferol (D-3) 1,000 UNIT (25MCG) TABLET PO SCH (09:29)
[2020-07-01] MEDS: Nystatin POWDER 30 GM BOTTLE TP SCH (09:35)
[2020-07-01] MEDS ORDERED: Furosemide 20 MG/2 ML VIAL IVP ONE ×2 (13:34→18:00)
[2020-07-01] MEDS ORDERED: Clinimix E 5%-15% SOLUTION 2,000 ML with MVI, adult with vitamin K 10 ML IVC SCH (17:00)
[2020-07-01] MEDS: traZODone 50 MG TABLET PO SCH (22:10)
[2020-07-02] MEDS: Insulin LISPRO 300 UNITS/3 ML VIAL SQ SCH ×5 (01:04→17:09)
[2020-07-02] MEDS: Piperacillin/Tazobactam 3.375 GM in 0.9 % Sodium Chloride Mini Bag 100 ML IVPB SCH ×3 (01:15→16:40)
[2020-07-02] MEDS: Azithromycin 500 MG in 0.9 % Sodium Chloride 250 ML IVPB SCH (01:16)
[2020-07-02] MEDS: Metoclopramide 10 MG/10 ML UD.LIQ PO SCH ×4 (01:17→18:09)
[2020-07-02] MEDS: Nystatin POWDER 30 GM BOTTLE TP SCH ×2 (01:17→08:22)
[2020-07-02] MEDS: Levalbuterol Neb 1.25 MG/3 ML IH SCH ×3 (03:20→15:49)
[2020-07-02 04:35] LABS: Hematocrit 29.2 % (37.5-50.1); Hemoglobin 9.4 g/dL (12.9-16.9); Mean Corpuscular HGB Conc 32.2 g/dL (31.6-35.5); Mean Corpuscular Hemoglobin 29.9 pg (28.0-33.3); Mean Platelet Volume 10.4 fL (9.4-12.4); Platelet Count 253 K/mcL (140-400); Red Blood Count 3.14 M/mcL (4.19-5.50); Red Cell Distribution Width 16.2 % (11.5-14.5); White Blood Count 10.6 K/mcL (4.3-11.1)
[2020-07-02 04:52] LABS: Magnesium 1.7 mg/dL (1.6-2.6); Phosphorous 3.4 mg/dL (2.7-4.5)
[2020-07-02 04:53] LABS: BUN/Creatinine Ratio 8 (6-26); Blood Urea Nitrogen 6 mg/dL (8-23); Calcium 7.5 mg/dL (8.6-10.3); Carbon Dioxide 30 mEq/L (23-29); Chloride 103 mEq/L (98-107); Glucose 137 mg/dL (70-105); Osmolality,Calculated 284 (280-300); Potassium 2.6 mEq/L (3.5-5.1); Sodium 137 mEq/L (136-145); eGFR For African Americans > 60 (> 60); eGFR For Non-African Americans > 60 (> 60)
[2020-07-02] MEDS: Nystatin SUSP 5 ML UD.LIQ PO SCH ×3 (07:49→16:40)
[2020-07-02] MEDS: Gabapentin 400 MG CAPSULE PO SCH ×2 (07:50→15:17)
[2020-07-02] MEDS: *HR* Rivaroxaban 10 MG TABLET PO SCH (07:50)
[2020-07-02] MEDS: Cholecalciferol (D-3) 1,000 UNIT (25MCG) TABLET PO SCH (07:50)
[2020-07-02] MEDS ORDERED: Magnesium Sulfate 1 GM/102 ML PIGGYBACK IVPB ONE (11:57)
[2020-07-02 16:02] VITALS: BP 107/66
[2020-07-02] MEDS ORDERED: Clinimix E 5%-15% SOLUTION 2,000 ML with MVI, adult with vitamin K 10 ML IVC SCH (17:00)
[2020-07-02] MEDS ORDERED: Furosemide 20 MG/2 ML VIAL IVP ONE (18:00)
== END 2020-07-02 19:41 | DRG 415 ==
LOC: 3ANU 22:13 → EMEROOARM 22:13 → 3ANU 06-22 00:44
PROVIDERS: ADMIT Surgery; ATTEND Surgery